=== PATIENT | female | born 1990 | race Caucasian/White ===

== ENCOUNTER 2017-01-27 00:45 | Inpatient (IN) | payer BC, OTHER ==
[2017-01-27] MEDS ORDERED: Carboprost Tromethamine 250 MCG/1 ML Amp IM PRN (01:26)
[2017-01-27] MEDS ORDERED: Lactated Ringers 500 ML IV ONE (01:26)
[2017-01-27] MEDS ORDERED: Ondansetron 4 MG/2 ML SDV IV PRN (01:26)
[2017-01-27] MEDS ORDERED: Lidocaine 1% 30 ML SDV INJECT PRN (01:26)
[2017-01-27] MEDS ORDERED: Sodium Chloride 0.9% 10 ML Syringe FLUSH PRN (01:26)
[2017-01-27] MEDS ORDERED: Acetaminophen 325 MG Tab PO PRN (01:26)
[2017-01-27] MEDS ORDERED: Methylergonovine 0.2 MG/1 ML Amp IM PRN (01:26)
[2017-01-27] MEDS ORDERED: Misoprostol 400 MCG (4 X 100 MCG TAB) RECTAL PRN (01:26)
[2017-01-27] MEDS ORDERED: Oxytocin/Normal Saline 30 UNIT/500 ML BAG IV SCH ×2 (01:30→12:00)
[2017-01-27] MEDS: Lactated Ringers 1,000 ML IV SCH ×2 (06:15→13:50)
[2017-01-27] MEDS ORDERED: fentaNYL 100 MCG/2 ML SDV ONE (11:12)
--- NOTE | 2017-01-27 11:42 | PCM.SN ---
- Free Text/Narrative Note: Called to provide labor pain relief via intrathecal for this patient. After chart reviewed, NPO status verified, consent signed, proceeded. With patient in sitting position, sterile prep/drape. Skin wheal at L4-5 with 1% lidocaine. LP X 1 at L4-5 with 24g pencan spinal needle. Positive, clear, free flowing CSF, no heme, no paresthesias. Then 6mg mpf hyperbaric spinal 0.75% marcaine, 20mcg sufenta, 30mcg fentanyl, 0.4ml preservative free NS, plus epi wash intrathecal. Patient to supine after, and block to around T6. Maternal B/P and FHT's remained stable after, and pt reported pain relief from subsequent contractions.
[2017-01-27] MEDS ORDERED: fentaNYL 100 MCG/2 ML SDV ITHECAL ONE (13:26)
[2017-01-27] MEDS ORDERED: Benzocaine/Menthol 20%-0.5% Spray 56 GM Canister TOP PRN (14:27)
[2017-01-27] MEDS ORDERED: Simethicone 80 MG Tab.Chew PO PRN (14:27)
[2017-01-27] MEDS: Ibuprofen 800 MG Tab PO PRN (22:02)
[2017-01-27] MEDS: Docusate Sodium 100 MG Cap PO PRN (22:04)
--- NOTE | 2017-01-28 04:05 | DEL ---
DATE: 01/27/2017 PRE-PROCEDURE DIAGNOSES: 1. Normal . 2. Blood type O positive. Rubella immune. Group B strep negative. 3. 41 and 0/7 weeks . 4. 2, para 1-0-0-1. POSTPROCEDURE DIAGNOSES: 1. Normal . 2. Blood type O positive. Rubella immune. Group B strep negative. 3. 41 and 0/7 weeks . 4. 2, now para 2-0-0-2. 5. Status post spontaneous vaginal delivery of a macrosomic infant. 6. Repair of second-degree laceration. BRIEF HISTORY: The patient is a 26-year-old with the above-listed diagnoses, who was scheduled for induction today for post-dates . However, presented with spontaneous onset of labor. She was progressing nicely until about 8 cm of dilatation at which time, she had arrest of labor and contractions were continuing to be quite strong. She elected to have an intrathecal performed and after that, her contractions were also augmented with 2 milliunits of Pitocin. She went on to complete cervical dilatation and was allowed to labor it down until she felt the urge to start pushing. She was in stage I for approximately 15-1/2 hours, stage II was only 35 minutes, and stage III only 3 minutes. Labor course was uncomplicated. monitoring strip was excellent at all times. Other than the intrathecal, she received nothing else for analgesia. She did have artificial rupture of membranes performed when she was 6 to 7 cm dilated. DETAILS: In the dorsal lithotomy position, she delivered a viable male over intact perineum in the OA position. Baby was dried, stimulated and mouth and nose were bulb suctioned as copious amount of secretions were auscultated, baby was then placed up on mother's abdomen. Delayed cord clamping and then umbilical cord cut by the father and baby moved higher up on mother's chest. Cord blood sample was then obtained and placenta delivered by gentle cord traction and concomitant uterine massage inspected and intact. Labia and perineum inspected and she had a second-degree perineal laceration, which was repaired with 3-0 Polysorb in the usual fashion without complications. Bleeding was well controlled. The patient was doing well. DISPOSITION: Mother and baby to stay in the room at this time. ESTIMATED BLOOD LOSS: 350 mL. FINDINGS: Viable male infant, weighing 4375 g, 9 pounds 10 ounces. scores of 9 and 9. [facility] /[id number]
[2017-01-28] MEDS: Ibuprofen 800 MG Tab PO PRN ×2 (06:12→15:54)
--- NOTE | 2017-01-28 08:08 | PN ---
DATE: 01/28/2017 SUBJECTIVE: day #1, status post uncomplicated vaginal delivery with second-degree laceration repair. Mother is doing well. She has been ambulating and tolerating regular diet, voiding without difficulties. She has not yet had a bowel movement. Bleeding has been minimal. She is and that is going well. No shortness of breath or chest pain. No other unusual side effects or symptoms noted. OBJECTIVE: Vital Signs: Temperature is 98.2, pulse 82, blood pressure 124/75, respiratory rate of 16. Heart: Regular without any murmur. Lungs: Clear to auscultation bilaterally. Abdomen: Soft and nontender. Fundus is firm and below the umbilicus. Extremities: Pitting edema of 1+ remains present. No erythema or tenderness noted. LABORATORY DATA: Hemoglobin is down to 10.4 from a previous 12.1. ASSESSMENT: 1. 2, now para 2-0-0-2, delivered at 41 weeks' gestation via spontaneous vaginal delivery with second-degree repair. 2. Delivery of macrosomic . 3. Anemia of acute blood loss. PLAN: Continue normal cares. Anticipate discharge home tomorrow as long as all continues to go well for her and the baby. Questions have been answered. [facility] /[id number]
[2017-01-28] MEDS: Ferrous Sulfate 325 MG Tab PO SCH ×2 (09:09→17:44)
[2017-01-28] MEDS: Prenatal Multivitamin with Calcium/Folic Acid/Iron Tab PO SCH (09:09)
[2017-01-28] MEDS: Docusate Sodium 100 MG Cap PO PRN ×2 (09:10→22:01)
--- NOTE | 2017-01-28 10:25 | PCM.POSTAN ---
POST ANESTHESIA ASSESSMENT - MENTAL STATUS Mental Status: Alert - VITAL SIGNS Pulse Rate: 80 SaO2: 100 Resp Rate: 16 Blood Pressure: 129/73 Temperature: 36.6 C - RESPIRATORY Respiratory Status: Respiratory Rate WNL - CARDIOVASCULAR CV Status: Pulse Rate WNL - GASTROINTESTINAL GI Status: No Symptoms - POST OP HYDRATION Hydration Status: Adequate & Stable - OBSERVATIONS Free Text/Narrative:: Pt without c/o. No PDPH, no PONV, no c/o back pain, no paresthesias. No post anesthesia complications noted.
[2017-01-29] MEDS: Ibuprofen 800 MG Tab PO PRN (06:03)
[2017-01-29 08:12] VITALS: BP 121/82
[2017-01-29] MEDS: Ferrous Sulfate 325 MG Tab PO SCH (09:04)
[2017-01-29] MEDS: Prenatal Multivitamin with Calcium/Folic Acid/Iron Tab PO SCH (09:04)
[2017-01-29] MEDS: Docusate Sodium 100 MG Cap PO PRN (09:04)
--- NOTE | 2017-01-29 15:08 | DISCH ---
ADMITTING DIAGNOSES: 1. 2, para 1-0-0-1. 2. Active labor at 41 weeks gestation based on last menstrual period and 9- week ultrasound. 3. Blood type A positive, rubella immune, and group B strep negative. 4. History of abnormal 1-hour glucose tolerance test, and normal 3-hour test. DISCHARGE DIAGNOSES: 1. 2, para 2-0-0-2. 2. Active labor at 41 weeks gestation based on last menstrual period and 9- week ultrasound. 3. Blood type A positive, rubella immune, and group B strep negative. 4. History of abnormal 1-hour glucose tolerance test, and normal 3-hour test. 5. Arrest of dilatation at 8 cm dilated, requiring Pitocin augmentation. 6. Anemia of acute blood loss. 7. Status post spontaneous vaginal delivery with second-degree laceration repair. BRIEF HISTORY: See history and physical for full details. This is a 26-year- old female, who was admitted to the hospital with the above listed diagnosis. She was scheduled for induction of labor on same day of admission; however, presented with spontaneous active labor and 5 cm of dilatation. As labor progressed, artificial rupture of membranes was performed with return of good fluid. As natural labor progressed, her contractions spaced out, and she was not getting past 8 cm dilated. At that time, intrathecal was placed for comfort and then Pitocin also added at 2 milliunits per hour which allowed her to progress to complete and then had a successful vaginal delivery without complications. See the delivery note for full details. HOSPITAL COURSE: Hospital course was good. Since time of delivery, the patient has been ambulating, tolerating regular diet, her baby and that is going well. She has had no chest pain or shortness of breath. Bleeding has been well controlled. She has not yet had a bowel movement, but is voiding without difficulties, and has no acute concerns. LABORATORY DATA: Admission hemoglobin was 12.1, discharge hemoglobin is 10.4. Her total stage I was 15.5 hours, and stage II 35 minutes, and stage III only about 5 minutes. DISCHARGE CONDITION: Good meeting discharge criteria. PHYSICAL EXAMINATION: Vital Signs: Temperature is 98.0, Pulse 76, blood pressure 120/72, respiratory rate of 16. Heart: Regular without murmur. Lungs: Clear bilaterally. Abdomen: Soft, nontender. Fundus is firm and below the umbilicus. Extremities: 1+ pitting edema bilaterally, gradually improving. DISPOSITION: Home with family. MEDICATIONS: 1. Iron 325 mg twice daily. 2. Colace 100 mg twice daily as needed for constipation. 3. Ibuprofen 600 mg every 6 hours as needed for pain. 4. Tylenol 650 mg every 6 hours as needed for pain. FOLLOWUP: She will make an appointment for 6 week exam. INSTRUCTIONS: Routine post vaginal delivery instructions for mother were provided. Her questions were answered. [facility] /[id number]
== END 2017-01-29 09:25 | disposition home or self-care (01) | DRG 560 ==
LOC: DL.OBCHECK 00:45 → DL.OB 01:20 → OBSVTOIN 14:00
PROVIDERS: ADMIT Family Medicine; ATTEND Family Medicine
PROC: 10E0XZZ Delivery of Products of Conception, External Approach (ICD-10-PCS; principal; 2017-01-27)
PROC: 10907ZC Drainage of Amniotic Fluid, Therapeutic from Products of Conception, Via Natural or Artificial Opening (ICD-10-PCS; 2017-01-27)
PROC: 4A1HXFZ Monitoring of Products of Conception, Cardiac Rhythm, External Approach (ICD-10-PCS; 2017-01-27)
PROC: 0KQM0ZZ Repair Perineum Muscle, Open Approach (ICD-10-PCS; 2017-01-27)
PROC: 00HU33Z Insertion of Infusion Device into Spinal Canal, Percutaneous Approach (ICD-10-PCS; 2017-01-27)
PROC: 3E0R3CZ (ICD-10-PCS; 2017-01-27)
DX: O48.0 Post-term pregnancy (principal); O70.1 Second degree perineal laceration during delivery; Z3A.41 41 weeks gestation of pregnancy; Z37.0 Single live birth; O62.1 Secondary uterine inertia; O99.02 Anemia complicating childbirth; D62 Acute posthemorrhagic anemia; O36.63X0 Maternal care for excessive fetal growth, third trimester, not applicable or unspecified; O62.0 Primary inadequate contractions
CPT/HCPCS: 36415; 85027; A9270-GY; J2405; J2590; J3010; J7120

== ENCOUNTER 2019-06-18 05:47 | Inpatient (IN) | payer OTHER ==
[~2019-06-18 05:47] MED LIST: Acetaminophen 325 MG Tab PO PRN; Carboprost Tromethamine 250 MCG/1 ML Amp IM PRN; Lactated Ringers 1,000 ML IV SCH; Lidocaine 1% 30 ML SDV INJECT PRN; Methylergonovine 0.2 MG/1 ML Amp IM PRN; Misoprostol 400 MCG (4 X 100 MCG TAB) RECTAL PRN; Ondansetron 4 MG/2 ML SDV IV PRN; Oxytocin/Normal Saline 30 UNIT/500 ML BAG IV SCH; Sodium Chloride 0.9% 10 ML Syringe FLUSH PRN; Tranexamic Acid 1,000 MG in Sodium Chloride 0.9% 100 ML IV PRN
[2019-06-18] MEDS ORDERED: Oxytocin/Normal Saline 30 UNIT/500 ML BAG IV SCH (06:00)
[2019-06-18] MEDS: Lactated Ringers 1,000 ML IV SCH (06:17)
[2019-06-18] MEDS ORDERED: Terbutaline 1 MG/ML SDV SUBCUT ONE (07:30)
[2019-06-18] MEDS ORDERED: Misoprostol 50 MCG (1/2 of 100 MCG) Tab VAG ONE (16:49)
[2019-06-18] MEDS: Misoprostol 25 MCG (1/4 of 100 MCG) Tab VAG PRN ×2 (17:41→21:46)
[2019-06-18] MEDS ORDERED: hydrOXYzine HCl 25 MG Tab PO ONE (21:50)
[2019-06-19] MEDS: Misoprostol 25 MCG (1/4 of 100 MCG) Tab VAG PRN ×2 (01:49→05:51)
[2019-06-19] MEDS: Lactated Ringers 1,000 ML IV SCH ×3 (06:36→14:26)
--- NOTE | 2019-06-19 10:10 | PN ---
DATE: 06/19/2019 SUBJECTIVE: The patient has now been at the hospital for close to 24 hours. She was brought in yesterday for external version and induction of labor because of labile blood pressures and unstable lie, breech at last clinic check. She was actually found to be vertex presentation and blood pressures initially 142/85 and 124/97. We tried Pitocin for initial induction and essentially did not get much in the way of cervical change nor regular contractions, so that was discontinued and she has had 3 doses of Cytotec overnight. However, with last check, baby has gone from being ballotable to no palpable presenting part , so the nurses called me in for re-evaluation. In the 20 or so minutes it took me to come in, the patient started jose alfredo 4 times every 10 minutes or so, not really feeling of yet, and overall still comfortable. She understands the importance of induction at this time even though it is taking longer than expected in a multigravida. OBJECTIVE: General: Pleasant, well-appearing 29-year-old female. Vital Signs: Temperature is 98.9, pulse 71, blood pressure 121/76, and respiratory rate of 16. Pelvic: Cervix is 3 cm dilated, 50 to 60% effaced, very anterior, and vertex is palpated. She is ballotable at this time. Bedside ultrasound also confirms head down and I do not see any cord or extremities in the way plus I did not feel any on cervical exam. Extremities: Significant edema is noted. ASSESSMENT: 1. 3, para 2-0-0-2. 2. Gestational hypertension with negative -induced hypertension laboratories, protein-creatinine ratio of 0.12. 3. History of breech presentation, currently with vertex presenting but has been unstable. 4. History of delivery of macrosomic infant and history of postdates . 5. Blood type A-positive, rubella immune, and group B Streptococcus negative. PLAN: At this time, since she is jose alfredo a little bit more regular and I can feel the head, we are going to initiate the Pitocin and hopefully bring that head down against the cervix firmly so that I can perform artificial rupture of membranes to keep the baby in place, and we can proceed with induction of labor and hopefully result in a vaginal delivery. The patient and her understand that complications can always arise and unexpected problems can lead to need for section. Their questions have been answered thus far. IMRIAM: 06/19/2019 06:56:12 MOD /[id number] PAMELA
--- NOTE | 2019-06-19 12:31 | PN ---
DATE: 06/19/2019 SUBJECTIVE: The patient remains pretty comfortable. She is noticing the contractions a little bit more, but denies that they are painful and has no other specific concerns. No preeclamptic symptoms. Baby movement has been good. OBJECTIVE: Vital Signs: Blood pressure 134/80. : Vaginal exam; 3 cm dilated, about 75% effaced, remains very anterior. Baby's head is ballotable and it is hard to feel the presenting part at this time. ASSESSMENT: Unchanged from prior. She has gestational hypertension with labile blood pressures, unstable lie. She is 3, para 2-0-0-2, and history of macrosomia with postdates . PLAN: At this time, I have discussed with the patient and her that given that she is not preeclamptic and her blood pressures are borderline and her bag of cohen intact, it is possible to discontinue induction efforts at this time and bring her back at a later date. My main concern is that she does have a baby who has been breech off and on throughout the as recently as last week and has an unstable lie. We are having some trouble getting the baby's head to come down against the cervix hard enough to be able to rupture the bag of water safely and if she does go home, there is a potential that baby will turn to a breech presentation and ultimately end up requiring section for that indication. I am going to let them discuss their options for a little while and answer any questions that they have. Again, I would encourage continued efforts of induction in order to have a vaginal delivery; however, the patient is aware of the risk of breech and requiring , but also has been in for induction for over 24 hours now and we have made very little progress. Baby is doing well and her blood pressures are tolerable, so the option would really be hers. I do not have a strong medical reason to force her into one decision or the other. [facility] /[id number]
[2019-06-19] MEDS ORDERED: fentaNYL 100 MCG/2 ML SDV ONE (14:11)
[2019-06-19] MEDS ORDERED: EPINEPHrine 1 MG/1 ML Amp ONE (14:12)
--- NOTE | 2019-06-19 14:58 | PCM.PRNOTE ---
- Free Text/Narrative Note: Requested to provide analgesia to full term patient in severe pain. Upon entering the room, patient is sitting on edge of bed complaining of severe abdominal/pelvic pain and discomfort. Procedure was discussed with patient including adverse outcomes and expectations. Pt consented to analgesia, SAB/ IT. Pt placed into a proper sitting position. Landmarks for SAB/IT were identified and marked. Hands were washed and appropriate PPE was applied. Back was prepped with betadine x3. A sterile, transparent, fenestrated drape was applied. Excess betadine was removed. Using 3 mL of a 1% lidocaine solution , a skin wheel was placed at the L2/L3 interspace. A 24 ga (4 inch) Pencan spinal needle was inserted until positive for CSF. Negative for heme or paresthesias. Injected fentanyl 30 mcg, sufentanil 25 mcg, and 7.5 mg of a 0.75 % bupivacaine solution with an epi wash. Pt was placed left lateral position for approximately 20 minutes. There were zero complications or adverse outcomes. Will continue to monitor. Procedure Date & Time: 06/19/19 [id number]
[2019-06-19] MEDS ORDERED: Simethicone 80 MG Tab.Chew PO PRN (16:00)
[2019-06-19] MEDS ORDERED: Benzocaine/Menthol 20%-0.5% Spray 56 GM Canister TOP PRN (16:00)
[2019-06-19] MEDS ORDERED: Oxytocin 10 Units/1 ML SDV IM PRN (16:00)
[2019-06-19] MEDS: Ibuprofen 800 MG Tab PO PRN (19:30)
[2019-06-19] MEDS: Docusate Sodium 100 MG Cap PO PRN (19:30)
[2019-06-20] MEDS: Ibuprofen 800 MG Tab PO PRN (05:26)
[2019-06-20] MEDS ORDERED: Ferrous Sulfate 325 MG Tab PO SCH (08:00)
[2019-06-20] MEDS: Docusate Sodium 100 MG Cap PO PRN (08:14)
[2019-06-20] MEDS ORDERED: Prenatal Multivitamin with Calcium/Folic Acid/Iron Tab PO SCH (09:00)
[2019-06-20 09:09] VITALS: BP 130/77; PULSE 74
--- NOTE | 2019-06-20 10:32 | DEL ---
DATE: 06/19/2019 PREPROCEDURE DIAGNOSES: 1. 38 weeks and 2 days gestation by last menstrual period and 17-week ultrasound. 2. 3, now para 2-0-0-2. 3. Unstable lie, currently vertex. 4. Gestational hypertension with negative -induced hypertension laboratories, protein-creatinine ratio of 0.12. 5. History of macrosomic . 6. History of postdates . 7. Blood type A-positive, rubella immune, and group B streptococcus negative. POSTPROCEDURE DIAGNOSES: 1. 38 weeks and 2 days gestation by last menstrual period and 17-week ultrasound. 2. 3, para now 3-0-0-3. 3. Unstable lie, currently vertex. 4. Gestational hypertension with negative -induced hypertension laboratories, protein-creatinine ratio of 0.12. 5. History of macrosomic infant. 6. History of postdates . 7. Blood type A-positive, rubella immune, and group B streptococcus negative. 8. Status post spontaneous vaginal delivery with second-degree laceration repair under intrathecal anesthesia. BRIEF HISTORY: A 29-year-old female presented to the hospital yesterday for induction of labor because of gestational hypertension and history of unstable lie and expectation for need of external cephalad version. She was found to actually be vertex, and we initiated induction with Pitocin, however, made little progress for that, and she ended up getting 3 doses of Cytotec, and the cervix was more favorable, but baby had been applied to the cervix at one time but then became ballotable and then could not feel parts. We verified again the baby still was in breech position and re-initiated Pitocin. After a few more hours, she eventually went on to spontaneous rupture of membranes and then spontaneous labor ensued well thereafter, and she only was in active labor for about 3 hours and delivered with only half of 1 push. The patient did receive an intrathecal for anesthesia when she was 7+ cm dilated, and after allowing her labor down, we had her start pushing when she was . DETAILS: The patient in dorsal lithotomy position. She delivered a viable female infant over intact perineum in the OA position. Baby had strong vigorous cry and was dried, stimulated, and placed up on mother's abdomen. After a delay, three-vessel umbilical cord was doubly clamped and cut. Cord blood sample obtained. Placenta then delivered by gentle cord traction and concomitant uterine massage. There was a second-degree laceration present that was bleeding rather profusely, so I did put a couple of stitches in to control the bleeding and better assess the anatomy. I actually needed to remove those 2 stitches and then do a standard second-degree laceration repair and had good hemostasis thereafter as well as a good cosmetic result. Repair was done with 3- 0 Vicryl suture and in the usual fashion and she tolerated well. ESTIMATED BLOOD LOSS: 450 mL. COMPLICATIONS: None. FINDINGS: Viable female infant, scores of 8 and 9, weight 3075 g, length 18-1/2 inches. DISPOSITION: Mother and baby to stay in the delivery room to initiate skin-to- skin and breast-feeding. [facility] /[id number]
--- NOTE | 2019-06-20 13:39 | DISCH ---
ADMITTING DIAGNOSES: 1. A 38 and 1/7 weeks' intrauterine by last menstrual period and 17- week ultrasound. 2. 3, para 2-0-0-2. 3. Unstable lie. 4. Gestational hypertension with negative PIH labs. 5. History of macrosomia. 6. History of postdates . 7. Blood type A positive, rubella immune, group B Streptococcus negative. DISCHARGE DIAGNOSES: 1. A 38 and 1/7 weeks' intrauterine by last menstrual period and 17- week ultrasound, delivered at 38 and 2/7 weeks' gestation. 2. 3, para 3-0-0-3. 3. Unstable lie. 4. Gestational hypertension with negative PIH labs. 5. History of macrosomia. 6. History of postdates . 7. Blood type A positive, rubella immune, group B Streptococcus negative. 8. Status post induction of labor resulting in spontaneous vaginal delivery. 9. Post second-degree laceration repair. PROCEDURES PERFORMED: 1. Induction of labor with Pitocin and Cytotec. 2. Intrathecal anesthesia. 3. Spontaneous vaginal delivery with second-degree repair. BRIEF HISTORY: A 29-year-old female brought into the hospital for planned external cephalad version for breech and induction of labor for gestational hypertension with added benefit of earlier delivery because of history of macrosomia. Upon presentation, the patient was actually vertex, so external version was not necessary, and induction started. It took about 36 hours to get her into actual labor, but once she had spontaneous rupture of membranes, she was only in labor for about another 2 hours of what would be considered active phase, and she delivered with only one-half of a push and there were no reversing complications or problems. HOSPITAL COURSE: Hospital course has been good. She tolerated her induction well even though it was rather frustrating. Delivery was without complications. She did have some bleeding varicose veins of the vaginal area that were difficult to control accounting for slightly higher than expected blood loss, but well managed with suturing. After delivery, the patient has done well. She is ambulating, tolerating regular diet. is going well. No chest pain or shortness of breath. No foul-smelling drainage or discharge, lochia has been normal, and she has no complaints and is requesting discharge home today. DISCHARGE CONDITION: Good. PHYSICAL EXAMINATION: Vital Signs: Temperature is 98.4, pulse 74, blood pressure 130/77, respiratory rate of 16, O2 saturations 100% on room air. Heart: Regular without murmur. Lungs: Clear to auscultation bilaterally. Abdomen: Soft and nontender. Fundus is firm and below the umbilicus. Extremities: 1+ edema bilaterally. LABORATORY DATA: Admission hemoglobin of 12.3, discharge of 9.4. Platelets, admission 225, discharge 191. Preeclampsia labs were negative, specifically urine kqrioqi-in-cfipchamuy ratio of 0.12. DISPOSITION: Home with family. MEDICATIONS: 1. Tylenol 650 mg every 6 hours as needed for pain. 2. Ibuprofen 800 mg every 8 hours as needed for pain. 3. Iron 1 tablet p.o. b.i.d. 4. Colace 100 mg twice daily as needed for constipation. 5. vitamin, continue 1 daily. FOLLOWUP: The patient will make an appointment for 6-week followup appointment. I will also be able to check on her at her baby's 2 week and 2 days post hospital visit. INSTRUCTIONS: Routine post vaginal delivery instructions were given. The patient understands to call or return if she has any significant increase in bleeding, foul-smelling drainage or discharge, fever, chills, uterine tenderness, or any other concerns that may arise. Her questions have been answered. [facility] /[id number] PAMELA
[2019-06-20] MEDS ORDERED: fentaNYL 100 MCG/2 ML SDV ITHECAL ONE (17:59)
[2019-06-20] MEDS ORDERED: EPINEPHrine 1 MG/1 ML Amp ONE (17:59)
== END 2019-06-20 18:00 | disposition home or self-care (01) | DRG 807 ==
LOC: DL.OBCHECK 05:47 → DL.OB 05:51 → OBSVTOIN 06-19 15:18
PROVIDERS: ADMIT Family Medicine; ATTEND Family Medicine
PROC: 10E0XZZ Delivery of Products of Conception, External Approach (ICD-10-PCS; principal; 2019-06-19)
PROC: 0KQM0ZZ Repair Perineum Muscle, Open Approach (ICD-10-PCS; 2019-06-19)
PROC: 3E033VJ Introduction of Other Hormone into Peripheral Vein, Percutaneous Approach (ICD-10-PCS; 2019-06-19)
DX: O13.4 Gestational [pregnancy-induced] hypertension without significant proteinuria, complicating childbirth (principal); Z37.0 Single live birth; O70.1 Second degree perineal laceration during delivery; Z3A.38 38 weeks gestation of pregnancy
CPT/HCPCS: 36415; 59409; 76815; 81003; 82565; 82570; 84156; 84450; 84460; 84520; 85027; 86850; 86900; 86901; A9270-GY; J0171; J2405; J2590; J3010; J7120

== ENCOUNTER 2022-03-04 07:36 | Inpatient (IN) | payer OTHER ==
[~2022-03-04 07:36] MED LIST changes: -Acetaminophen 325 MG Tab PO PRN; -Carboprost Tromethamine 250 MCG/1 ML Amp IM PRN; +Lactated Ringers 1,000 ML IV ONE; -Lactated Ringers 1,000 ML IV SCH; -Lidocaine 1% 30 ML SDV INJECT PRN; -Methylergonovine 0.2 MG/1 ML Amp IM PRN; -Misoprostol 400 MCG (4 X 100 MCG TAB) RECTAL PRN; -Ondansetron 4 MG/2 ML SDV IV PRN; -Oxytocin/Normal Saline 30 UNIT/500 ML BAG IV SCH; -Sodium Chloride 0.9% 10 ML Syringe FLUSH PRN; -Tranexamic Acid 1,000 MG in Sodium Chloride 0.9% 100 ML IV PRN
[2022-03-04] MEDS ORDERED: fentaNYL 100 MCG/2 ML SDV IVPUSH PRN (08:00)
[2022-03-04] MEDS ORDERED: Sodium Chloride 0.9% 10 ML Syringe FLUSH PRN ×2 (08:00→14:58)
[2022-03-04] MEDS ORDERED: Ondansetron 4 MG/2 ML SDV IVPUSH PRN ×5 (08:00→16:51)
[2022-03-04] MEDS ORDERED: Carboprost Tromethamine 250 MCG/1 ML Amp IM PRN ×2 (08:00→16:51)
[2022-03-04] MEDS ORDERED: Lidocaine 1% 30 ML SDV INJECT PRN (08:00)
[2022-03-04] MEDS ORDERED: Naloxone 2 MG/2 ML Syringe IVPUSH PRN ×4 (08:00→17:42)
[2022-03-04] MEDS ORDERED: Acetaminophen 325 MG Tab PO PRN ×3 (08:00→16:51)
[2022-03-04] MEDS ORDERED: Misoprostol 400 MCG (4 X 100 MCG TAB) RECTAL PRN ×2 (08:00→16:51)
[2022-03-04] MEDS ORDERED: ePHEDrine 50 MG/ML SDV IVPUSH PRN ×2 (08:00→16:51)
[2022-03-04] MEDS ORDERED: Lactated Ringers 500 ML IV SCH (08:00)
[2022-03-04] MEDS ORDERED: Methylergonovine 0.2 MG/1 ML Amp IM PRN ×2 (08:00→16:51)
[2022-03-04] MEDS ORDERED: Promethazine 25 MG/ML SDV IM PRN (08:00)
[2022-03-04] MEDS ORDERED: Nalbuphine 20 MG/1 ML Amp IM PRN (08:00)
[2022-03-04] MEDS ORDERED: Tranexamic Acid 1,000 MG in Sodium Chloride 0.9% 100 ML IV PRN ×2 (08:00→16:51)
[2022-03-04] MEDS: Lactated Ringers 1,000 ML IV SCH ×2 (08:55→14:18)
[2022-03-04] MEDS: Oxytocin/Normal Saline 30 UNIT/500 ML BAG IV SCH ×2 (09:05→16:50)
[2022-03-04] MEDS ORDERED: Sodium Bicarbonate 4.2% 2.5 MEQ/5 ML SDV ONE (14:17)
[2022-03-04] MEDS ORDERED: EPINEPHrine 1 MG/ML SDV ONE ×2 (14:17)
[2022-03-04] MEDS ORDERED: fentaNYL 100 MCG/2 ML SDV ITHECAL ONE (14:17)
[2022-03-04] MEDS ORDERED: fentaNYL 100 MCG/2 ML SDV ONE (14:17)
[2022-03-04] MEDS ORDERED: Sodium Chloride 0.9% 20 ML SDV ONE (14:17)
[2022-03-04] MEDS ORDERED: ceFAZolin 2 GM in Premix Bag 1 BAG IV STA (14:58)
[2022-03-04] MEDS ORDERED: Citric Acid/Sodium Citrate Solution 30 ML Cup PO ONE (14:58)
[2022-03-04] MEDS ORDERED: Lactated Ringers 1,000 ML IV SCH ×3 (15:00→17:00)
[2022-03-04] MEDS ORDERED: Oxytocin/Normal Saline 60 UNIT/1,000 ML BAG ONE (15:00)
[2022-03-04] MEDS ORDERED: Sodium Chloride 0.9% 100 ML ONE (15:49)
[2022-03-04] MEDS ORDERED: Hetastarch in NS 500 ML ONE (15:49)
[2022-03-04] MEDS ORDERED: ceFAZolin 2 GM in Premix Bag 1 BAG IV ONE (16:00)
[2022-03-04] MEDS ORDERED: Oxytocin/Normal Saline 30 UNIT/500 ML BAG IV ONE (16:00)
[2022-03-04] MEDS ORDERED: diphenhydrAMINE 25 MG Tab PO PRN (16:42)
[2022-03-04] MEDS ORDERED: diphenhydrAMINE 50 MG/ML SDV IVPUSH PRN ×2 (16:42→16:51)
[2022-03-04] MEDS ORDERED: fentaNYL Citrate/PF 1,500 MCG/30 ML PCA Vial IV SCH ×2 (16:45→17:45)
[2022-03-04] MEDS ORDERED: fentaNYL Citrate/PF 1,500 MCG/30 ML PCA Vial ONE (18:28)
[2022-03-04] MEDS: Simethicone 80 MG Tab.Chew PO SCH ×2 (19:22→22:36)
[2022-03-04] MEDS ORDERED: Sodium Chloride 0.9% 10 ML Syringe FLUSH SCH ×2 (21:00)
[2022-03-04] MEDS: Ferrous Sulfate 325 MG Tab PO SCH (22:36)
[2022-03-05] MEDS ORDERED: Levothyroxine 25 MCG Tab PO SCH (06:00)
[2022-03-05] MEDS: Prenatal Multivitamin with Calcium/Folic Acid/Iron Tab PO SCH (08:52)
[2022-03-05] MEDS: Ferrous Sulfate 325 MG Tab PO SCH ×3 (08:52→20:00)
[2022-03-05] MEDS: Simethicone 80 MG Tab.Chew PO SCH ×4 (08:52→20:15)
[2022-03-05] MEDS: Acetaminophen/oxyCODONE 325-5 MG Tab PO PRN ×3 (08:52→19:33)
[2022-03-05] MEDS: Ibuprofen 800 MG Tab PO PRN ×2 (08:55→21:02)
[2022-03-05] MEDS: Docusate Sodium 100 MG Cap PO PRN (19:33)
[2022-03-06] MEDS: Acetaminophen/oxyCODONE 325-5 MG Tab PO PRN ×3 (01:13→13:24)
[2022-03-06] MEDS: Ibuprofen 800 MG Tab PO PRN ×2 (04:48→13:23)
[2022-03-06] MEDS: Ferrous Sulfate 325 MG Tab PO SCH (08:16)
[2022-03-06] MEDS: Simethicone 80 MG Tab.Chew PO SCH ×3 (08:16→17:14)
[2022-03-06] MEDS: Docusate Sodium 100 MG Cap PO PRN (08:16)
[2022-03-06] MEDS: Prenatal Multivitamin with Calcium/Folic Acid/Iron Tab PO SCH (08:16)
== END 2022-03-06 17:00 | disposition home or self-care (01) | DRG 787 ==
LOC: DL.OB 07:36 → OBSVTOIN 15:22 → MERGE 15:22
PROVIDERS: ADMIT Family Medicine; ATTEND Family Medicine
PROC: 10D00Z1 Extraction of Products of Conception, Low, Open Approach (ICD-10-PCS; principal; 2022-03-04)
PROC: 10907ZC Drainage of Amniotic Fluid, Therapeutic from Products of Conception, Via Natural or Artificial Opening (ICD-10-PCS; 2022-03-04)
PROC: 30233N1 Transfusion of Nonautologous Red Blood Cells into Peripheral Vein, Percutaneous Approach (ICD-10-PCS; 2022-03-04)
DX: O32.2XX0 Maternal care for transverse and oblique lie, not applicable or unspecified (principal); D62 Acute posthemorrhagic anemia; Z3A.39 39 weeks gestation of pregnancy; Z37.0 Single live birth; O67.9 Intrapartum hemorrhage, unspecified; O99.02 Anemia complicating childbirth; O99.284 Endocrine, nutritional and metabolic diseases complicating childbirth; Z20.822 Contact with and (suspected) exposure to COVID-19; E03.9 Hypothyroidism, unspecified
CPT/HCPCS: 01961; 01967; 36415; 36430; 51702; 59409; 85027; 86850; 86900; 86901; 86920; 86922; 94010; A9270-GY; J0171; J0690; J2550; J2590; J3010; J7120; P9016; U0002

== ENCOUNTER 2025-01-10 07:42 | Inpatient (IN) | payer BC, OTHER ==
[~2025-01-10 07:42] MED LIST changes: +Carboprost Tromethamine 250 MCG/1 ML Amp IM PRN; -Lactated Ringers 1,000 ML IV ONE; +Oxytocin 10 Units/1 ML SDV IM PRN; +Sodium Chloride 0.9% 10 ML Syringe FLUSH PRN
[2025-01-10] MEDS: Lactated Ringers 1,000 ML IV SCH ×3 (11:45→23:25)
[2025-01-10 12:14] LABS: PLATELET COUNT,PLT 238 10^3/uL (150-450); RED BLOOD CELL COUNT 4.17 10^6/uL (4.2-5.4); WHITE BLOOD CELL COUNT,WBC 11.4 10^3/uL (5.0-10.0)
[2025-01-10 12:16] LABS: BASOPHILS PERCENT AUTO 0.3 % (0.0-1.0); EOSINOPHILS PERCENT AUTO 1.2 % (1.0-3.0); LYMPHOCYTES PERCENT AUTO 15.8 % (20.5-50.1); MONOCYTES PERCENT AUTO 6.8 % (2-8); NEUTROPHILS PERCENT AUTO 75.9 % (42.2-75.2)
[2025-01-10] MEDS ORDERED: Oxytocin/Normal Saline 30 UNIT/500 ML BAG ONE ×2 (12:47→13:31)
[2025-01-10 12:52] LABS: SEG NEUTROPHILS PERCENT MAN 81 % (42-75)
[2025-01-10 12:53] LABS: LYMPHOCYTES PERCENT MAN 12 % (20-50); MONOCYTES PERCENT MAN 7 % (2-8)
[2025-01-10] MEDS ORDERED: Phenylephrine 1% 10 MG/ML SDV ONE (13:39)
[2025-01-10] MEDS ORDERED: Acetaminophen/oxyCODONE 325-5 MG Tab PO PRN (14:46)
[2025-01-10] MEDS ORDERED: Carboprost Tromethamine 250 MCG/1 ML Amp IM PRN (14:46)
[2025-01-10] MEDS ORDERED: Ondansetron 4 MG/2 ML SDV IVPUSH PRN (14:46)
[2025-01-10] MEDS ORDERED: diphenhydrAMINE 50 MG/ML SDV IVPUSH PRN (14:46)
[2025-01-10] MEDS ORDERED: ePHEDrine 50 MG/ML SDV IVPUSH PRN (14:46)
[2025-01-10] MEDS ORDERED: Lactated Ringers 1,000 ML IV SCH (15:00)
[2025-01-10] MEDS: Oxytocin/Normal Saline 30 UNIT/500 ML BAG IV SCH (15:41)
[2025-01-10] MEDS: Acetaminophen/HYDROcodone 325-5 MG Tab PO SCH (18:05)
[2025-01-10] MEDS: Sodium Chloride 0.9% 10 ML Syringe FLUSH SCH (18:06)
[2025-01-10] MEDS: Ketorolac 30 MG/ML SDV IVPUSH SCH (20:48)
[2025-01-11] MEDS: Prenatal Multivitamin with Calcium/Folic Acid/Iron Tab PO SCH (08:41)
== END 2025-01-12 11:37 | disposition home or self-care (01) | DRG 540 ==
LOC: DL.OB 11:29 → OBSVTOIN 14:11
PROVIDERS: ADMIT Student in an Organized Health Care Education/Training Program; ATTEND Student in an Organized Health Care Education/Training Program
PROC: 10D00Z1 Extraction of Products of Conception, Low, Open Approach (ICD-10-PCS; principal; 2025-01-10 13:30)
DX: O34.211 Maternal care for low transverse scar from previous cesarean delivery (principal); Z3A.39 39 weeks gestation of pregnancy; Z37.0 Single live birth; O99.02 Anemia complicating childbirth; Z90.49 Acquired absence of other specified parts of digestive tract; Z98.890 Other specified postprocedural states; Z79.899 Other long term (current) drug therapy
CPT/HCPCS: 36415; 59025; 85014; 85018; 85025; 86850; 86870; 86900; 86901; 94010; A9270-GY; J1885; J2590; J7120